=== PATIENT | female | born 1940 | race Caucasian/White ===

== ENCOUNTER 2017-06-16 10:32 | Day surgery (SDC) | payer MEDICARE ==
[~2017-06-16] VITALS: Ht 157.5 cm; Wt 71.9 kg
[2017-06-16 11:16] VITALS: BP 129/74
[2017-06-16] MEDS ORDERED: SODIUM CHLORIDE 0.9% 1,000 ML IV SCH (11:18)
[2017-06-16] MEDS ORDERED: ONDA4TAB10 PO (11:24)
[2017-06-16] MEDS ORDERED: LANS30CA60 PO (11:24)
[2017-06-16] MEDS ORDERED: LEVO100T5 PO (11:24)
[2017-06-16] MEDS ORDERED: CYAN10002 IJ (11:24)
[2017-06-16] MEDS ORDERED: ROSU20TA PO (11:24)
[2017-06-16 11:45] LABS: HEMATOCRIT 48.2 % (34.6-47.8); HEMOGLOBIN 16.4 g/dL (11.7-16.4); WHITE BLOOD COUNT 5.4 x10^3/uL (3.4-10)
[2017-06-16] MEDS ORDERED: LIDOCAINE 1%, 20ML ONE (11:55)
[2017-06-16] MEDS ORDERED: MIDAZOLAM 1 MG/ML, 5ML ONE (12:05)
[2017-06-16] MEDS ORDERED: FENTANYL PF 100 MCG/2ML ONE ×2 (12:05)
[2017-06-16] MEDS ORDERED: FLUMAZENIL 0.1 MG/1 ML, 5ML ONE (12:05)
[2017-06-16] MEDS ORDERED: NALOXONE 1 MG/ML, 2ML ONE (12:05)
== END 2017-06-16 13:45 ==
LOC: OUT 10:32
PROVIDERS: ATTEND Internal Medicine
DX: C85.90 Non-Hodgkin lymphoma, unspecified, unspecified site (principal); D64.9 Anemia, unspecified; I10 Essential (primary) hypertension
CPT/HCPCS: 36415; 38221; 77012; 85025; 85060; 85097; 88237; 88264; 88280; 88305; 88311; 88313; 99156; 99157; G0364; J2250; J3010; J3490; J7030; 88184; 88185; 88189; J2310